=== PATIENT | female | born 1985 | race African-American/Black ===

== ENCOUNTER → 2019-02-02 | Outpatient (CLI) | payer OTHER ==
--- NOTE | 2018-12-30 08:29 | NUR ---
lmom with phone number. asked pt to bring disk and a [employer] driver
[2019-02-02] VITALS (8 sets, daily range): BP systolic 150–165; BP diastolic 102–109; PULSE 72–91
[~2019-02-02] VITALS: Ht 170.2 cm; Wt 82.5 kg
[~2019-02-02] MED LIST: TENORMIN 5050 MG/TAB PO; ZESTRIL 10MG10 MG PO
[2019-02-02 12:59] LABS: INR 1.1 (0.8-3.0); PROTHROMBIN TIME 12.5 SECONDS (9.7-12.8)
--- NOTE | 2019-02-02 13:30 | NUR ---
Dr Crawford in room to start procedure under ultrasound.
--- NOTE | 2019-02-02 13:40 | NUR ---
liver biopsy completed and tissue in formulin and taken to lab, pt to rad holding area via w/c, bandaid to abd. is clean and dry.
== END ==
LOC: COL.RAD 01-03 09:00
PROVIDERS: Radiology Diagnostic Radiology
DX: B19.10 Unspecified viral hepatitis B without hepatic coma (principal); R74.8 Abnormal levels of other serum enzymes